=== PATIENT | male | born 1990 | race Caucasian/White ===

== ENCOUNTER 2018-01-14 20:36 | Emergency (ER) | payer SELFPAY ==
[~2018-01-14] VITALS: Ht 190.5 cm; Wt 65.8 kg
[~2018-01-14 20:36] MED LIST: BACTRIM DS 8001 TA1 PO
[2018-01-14 21:20] LABS: BASO # 0.1 10*3/uL (0.0-0.1); BASO % 0.3 % (0.0-1.0); EOS % 0.2 % (1.0-4.0); HEMATOCRIT 39.8 % (42.0-52.0); HEMOGLOBIN 13.2 g/dl (14.0-18.0); LYMPH # 2.5 10*3/uL (1.3-4.4); LYMPH % 15.6 % (27.0-41.0); MEAN CELL VOLUME 92.3 fl (80.0-94.0); MEAN CORPUSCULAR HGB 30.6 pg (27.0-31.0); MEAN CORPUSCULAR HGB CONC 33.2 g/dl (33.0-37.0); MEAN PLATELET VOLUME 10.6 fl (9.6-12.3); MONO # 1.2 10*3/uL (0.1-1.0); MONO % 7.4 % (3.0-9.0); NEUT # 12.4 10*3/uL (2.3-7.9); NEUT % 76.1 % (47.0-73.0); PLATELET COUNT AUTOMATED 265 10*3/uL (130-400); RED BLOOD COUNT 4.31 10*6/uL (4.50-5.90); RED CELL DISTRI WIDTH 13.5 % (0-14.5); WHITE BLOOD COUNT 16.3 10*3/uL (4.8-10.8)
[2018-01-14 21:36] LABS: ALBUMIN 3.1 gm/dl (3.1-4.5); ALKALINE PHOSPHATASE 96 U/L (45-117); BUN 17 mg/dl (7-24); CHLORIDE 99 mmol/L (98-107); CREATININE 0.85 mg/dL (0.70-1.30); POTASSIUM 3.9 mmol/L (3.5-5.1); SGOT/AST 25 IU/L (3-35); SGPT/ALT 44 U/L (12-78); SODIUM 133 mmol/L (136-145); TOTAL PROTEIN 8.4 gm/dL (6.4-8.2)
== END 2018-01-15 02:15 | disposition short-term general hospital (02) ==
LOC: ED 20:36
PROVIDERS: Student in an Organized Health Care Education/Training Program
DX: S40.852A Superficial foreign body of left upper arm, initial encounter (principal); M60.822 Other myositis, left upper arm; L02.414 Cutaneous abscess of left upper limb; F17.200 Nicotine dependence, unspecified, uncomplicated; Z91.030 Bee allergy status; X58.XXXA Exposure to other specified factors, initial encounter; Y93.89 Activity, other specified; Y92.89 Other specified places as the place of occurrence of the external cause; Y99.8 Other external cause status

== ENCOUNTER 2020-08-23 21:07 | Emergency (ER) | payer OTHER ==
[~2020-08-23] VITALS: Ht 187.9 cm; Wt 57.2 kg
== END 2020-08-23 22:00 | disposition home or self-care (01) ==
LOC: ED 21:07
DX: F11.23 Opioid dependence with withdrawal (principal)

== ENCOUNTER 2020-08-25 15:22 | Inpatient (IN) | payer OTHER ==
[~2020-08-25] VITALS: Ht 187.9 cm; Wt 70.0 kg
[2020-08-25 15:40] VITALS: BP 135/98
[2020-08-25 16:22] LABS: BILIRUBIN Negative (Negative); BLOOD Negative (Negative); CLARITY Cloudy (Clear); COLOR Yellow (Yellow); GLUCOSE Negative (Negative); KETONE Negative (Negative); LEUKO ESTERASE Negative (Negative); NITRITE Negative (Negative); PH 7.5 (4.5-8.0); UROBILINOGEN 0.2 E.U./dl (0.0-1.0)
[2020-08-25 16:28] LABS: URINE AMPHETAMINES < 1000 (1000ng/ml); URINE BARBITURATES < 200 (200ng/ml); URINE BENZODIAZEPINES < 200 (200ng/ml); URINE CANNABINOIDS (THC) > 50 (50ng/ml); URINE COCAINE < 300 (300ng/ml); URINE METHADONE < 300 (300ng/ml); URINE OPIATES < 300 (300ng/ml)
[2020-08-25 16:31] LABS: URINE PHENCYCLIDINE < 25 (25ng/ml)
[2020-08-25 16:36] LABS: WBC 0-2 wbc/hpf (0-5)
--- NOTE | 2020-08-25 17:02 | NUR ---
PT REMAUNS WITHOUT DISSTRESS, CALL LIGHT IN REACH, AND SIDE RAILS UP.
[2020-08-25 17:10] LABS: BASO # 0.1 10*3/uL (0.0-0.1); BASO % 1.1 % (0.0-1.0); EOS # 0.1 10*3/uL (0.0-0.4); EOS % 2.5 % (1.0-4.0); HEMATOCRIT 49.8 % (42.0-52.0); LYMPH % 37.1 % (27.0-41.0); MEAN CORPUSCULAR HGB 30.4 pg (27.0-31.0); MEAN CORPUSCULAR HGB CONC 31.7 g/dl (33.0-37.0); MEAN PLATELET VOLUME 10.7 fl (9.6-12.3); MONO # 0.3 10*3/uL (0.1-1.0); MONO % 6.3 % (3.0-9.0); NEUT # 2.8 10*3/uL (2.3-7.9); NEUT % 52.6 % (47.0-73.0); PLATELET COUNT AUTOMATED 211 10*3/uL (130-400); RED BLOOD COUNT 5.19 10*6/uL (4.50-5.90); RED CELL DISTRI WIDTH 13.9 % (0-14.5); WHITE BLOOD COUNT 5.3 10*3/uL (4.8-10.8)
[2020-08-25 17:30] LABS: ALBUMIN 3.9 gm/dl (3.1-4.5); ALKALINE PHOSPHATASE 85 U/L (45-117); BUN 14 mg/dl (7-24); CHLORIDE 109 mmol/L (98-107); POTASSIUM 4.3 mmol/L (3.5-5.1); SGOT/AST 14 IU/L (3-35); SGPT/ALT 16 U/L (12-78); SODIUM 138 mmol/L (136-145); TOTAL PROTEIN 8.5 gm/dL (6.4-8.2)
[2020-08-25 17:32] LABS: ETHYL ALCOHOL < 3.0 mg/dl (<3); TROPONIN I < 0.015 ng/ml (<0.045)
--- NOTE | 2020-08-25 18:29 | NUR ---
PT PROVIDED A DINNER TRAY AND NO ADDITIONAL COMPLAINTS VOICED,CALL LIGHT WITHIN REACH.
[2020-08-25 18:55] VITALS: BP 137/89
--- NOTE | 2020-08-25 19:00 | NUR ---
PT WAS ABLE TO EAT ENTIRE DINNER, PT RESTING IN BED. NO DISTRESS NOTED.
[2020-08-25 20:28] VITALS: BP 158/80
--- NOTE | 2020-08-25 20:28 | NUR ---
Time: 2027 A 30 year old MALE admitted to under services of SOLOMON BURTON DO. Pt. arrived via bed from ER. Chief complaint: OPIATE WITHDRAWAL. VADIM BARRERA
--- NOTE | 2020-08-25 20:51 | NUR ---
PT MEDICATED W/PRN'S AVAILABLE FOR MULTIPLE C/O WITHDRAWAL S/S. NICOTENE PATCH PLACED ON RT SHOULDER. TOWELS AND WASHCLOTHS GIVEN TO PT TO SHOWER. SNACKS GIVEN TO PT ALSO.
--- NOTE | 2020-08-25 21:50 | NUR ---
PT AMBULATING IN HALLWAY. PT STATES PRN MEDS EFFECTIVE. PT ASKING FOR SNACKS/DRINKS. FOOD/FLUIDS GIVEN TO PT PER REQUEST.
[2020-08-26] VITALS: BP 121/71
[2020-08-26 08:00] VITALS: BP 124/80
--- NOTE | 2020-08-26 08:33 | NUR ---
PATIENT MEETS [facility]. [facility] STAFF WILL FOLLOW UP WITH PATIENT WITH REFFERAL OPTION FOR A [facility] CLINIC FOR HIS AFTERCARE PLAN. BEVERLY KIM B.A. INTAKE COORDIANTOR
--- NOTE | 2020-08-26 09:18 | NUR ---
PT REQUESTED AND WAS MEDICATED WITH ROBAXIN FOR C/O MUSCLE ACHES.
--- NOTE | 2020-08-26 09:19 | NUR ---
PT REQUESTED AND WAS MEDICATED WITH MOTRIN FOR C/O GENERALIZED PAIN AND VISTRIL FOR C/O ANXIETY. CALL LIGHT IN REACH. WILL MONITOR
--- NOTE | 2020-08-26 10:10 | NUR ---
PT STATES PRN MEDICATIONS EFFECTIVE. WILL MONITOR
--- NOTE | 2020-08-26 10:53 | NUR ---
PT REQUESTED AND WAS MEDICATED WITH A NICOTINE INHALER. NICOTINE PATCH REMOVED.
[2020-08-26 12:00] VITALS: BP 124/74
--- NOTE | 2020-08-26 15:16 | NUR ---
[facility] STAFF IN TO SEE PATIENT. PATIENT WANTS TO FOLLOW UP WITH [facility] FOR HIS AFTERCARE PLAN. PATIENT RECEIVED CALL IN ROOM AND BECAME UPSET, ASKED [facility] STAFF TO LEAVE ROOM. BEVERLY KIM B.A. INVESTMENT SPECIALIST
--- NOTE | 2020-08-26 15:39 | NUR ---
PT REQUESTED AND WAS MEDICATED WITH NICOTINE GUM. NICOTINE INHALER LOCKED IN [facility].
[2020-08-26 16:00] VITALS: BP 127/87
--- NOTE | 2020-08-26 18:34 | NUR ---
PT LEFT AMA. DR HATCH, NURSING SUPERVISIOR AND MESSAGE LEFT WITH [facility].
== END 2020-08-26 18:34 | disposition left against medical advice (07) | DRG 894 ==
LOC: ED 15:22 → EDHOLD 16:13 → 4E 16:13
PROVIDERS: Nurse Practitioner Family; ADMIT Student in an Organized Health Care Education/Training Program; ATTEND Student in an Organized Health Care Education/Training Program
DX: F11.23 Opioid dependence with withdrawal (principal); F13.10 Sedative, hypnotic or anxiolytic abuse, uncomplicated; F12.90 Cannabis use, unspecified, uncomplicated; F17.210 Nicotine dependence, cigarettes, uncomplicated; F16.10 Hallucinogen abuse, uncomplicated; E87.8 Other disorders of electrolyte and fluid balance, not elsewhere classified; Z53.29 Procedure and treatment not carried out because of patient's decision for other reasons; Z79.899 Other long term (current) drug therapy

== ENCOUNTER 2021-04-21 15:49 | Inpatient (IN) | payer OTHER ==
[~2021-04-21] VITALS: Ht 190.5 cm; Wt 68.0 kg
[2021-04-21 15:55] VITALS: BP 118/77
[2021-04-21] MEDS ORDERED: PROZAC20 MG PO (16:15)
[2021-04-21] MEDS ORDERED: SUBOXONE 8 MG-1 EACH SL (16:17)
[2021-04-21 17:00] VITALS: BP 120/76
[2021-04-21 18:30] VITALS: BP 120/76
[2021-04-22] VITALS: BP 127/91
[2021-04-22 08:00] VITALS: BP 120/76
[2021-04-22 08:02] LABS: BASO % 0.6 % (0.0-1.0); EOS # 0.2 10*3/uL (0.0-0.4); EOS % 2.8 % (1.0-4.0); HEMATOCRIT 36.3 % (42.0-52.0); LYMPH # 2.1 10*3/uL (1.3-4.4); LYMPH % 30.4 % (27.0-41.0); MEAN CELL VOLUME 91.4 fl (80.0-94.0); MEAN CORPUSCULAR HGB 29.5 pg (27.0-31.0); MEAN CORPUSCULAR HGB CONC 32.2 g/dl (33.0-37.0); MEAN PLATELET VOLUME 10.3 fl (9.6-12.3); MONO # 0.4 10*3/uL (0.1-1.0); MONO % 5.6 % (3.0-9.0); NEUT # 4.1 10*3/uL (2.3-7.9); PLATELET COUNT AUTOMATED 290 10*3/uL (130-400); RED BLOOD COUNT 3.97 10*6/uL (4.50-5.90); RED CELL DISTRI WIDTH 14.4 % (0-14.5); WHITE BLOOD COUNT 6.8 10*3/uL (4.8-10.8)
[2021-04-22 09:14] LABS: ALKALINE PHOSPHATASE 72 U/L (45-117); BUN 11 mg/dl (7-24); CHLORIDE 107 mmol/L (98-107); CREATININE 0.66 mg/dL (0.70-1.30); POTASSIUM 3.7 mmol/L (3.5-5.1); SGOT/AST 19 IU/L (3-35); SGPT/ALT 30 U/L (12-78); SODIUM 137 mmol/L (136-145); TOTAL PROTEIN 7.2 gm/dL (6.4-8.2)
[2021-04-22 09:20] LABS: ETHYL ALCOHOL < 3.0 mg/dl (<3)
[2021-04-22 16:00] VITALS: BP 131/82
[2021-04-22 17:20] LABS: URINE AMPHETAMINES < 1000 (1000ng/ml); URINE BARBITURATES < 200 (200ng/ml); URINE BENZODIAZEPINES < 200 (200ng/ml); URINE CANNABINOIDS (THC) < 50 (50ng/ml); URINE COCAINE < 300 (300ng/ml); URINE METHADONE < 300 (300ng/ml); URINE OPIATES < 300 (300ng/ml)
[2021-04-22 17:27] LABS: URINE PHENCYCLIDINE < 25 (25ng/ml)
[2021-04-22 20:00] VITALS: BP 139/99
[2021-04-23 08:00] VITALS: BP 102/72; BP 142/98
[2021-04-23 20:00] VITALS: BP 143/90
[2021-04-24 08:00] VITALS: BP 129/90
[2021-04-24 12:00] VITALS: BP 127/82
[2021-04-24 16:00] VITALS: BP 138/84
[2021-04-24 20:00] VITALS: BP 149/84
[2021-04-25] VITALS: BP 132/88
[2021-04-25 08:15] VITALS: BP 135/69
[2021-04-25] MEDS ORDERED: DOXYCYCLINE MO100 M1 PO (08:23)
== END 2021-04-25 08:50 | disposition home or self-care (01) | DRG 897 ==
LOC: ED 15:49 → 4E 16:15 → EDHOLD 16:15 → 4E 20:03
PROVIDERS: Physician Assistant; ADMIT Internal Medicine; ATTEND Internal Medicine
DX: F11.23 Opioid dependence with withdrawal (principal); E44.0 Moderate protein-calorie malnutrition; Z68.1 Body mass index [BMI] 19.9 or less, adult; J20.9 Acute bronchitis, unspecified; B19.20 Unspecified viral hepatitis C without hepatic coma; F17.210 Nicotine dependence, cigarettes, uncomplicated; Z91.030 Bee allergy status; Z79.899 Other long term (current) drug therapy

== ENCOUNTER 2021-07-15 07:42 | Emergency (ER) | payer OTHER ==
[~2021-07-15 07:42] MED LIST changes: +DOXYCYCLINE MO100 M1 PO; +PROZAC20 MG PO; +SUBOXONE 8 MG-1 EACH SL
[2021-07-15] MEDS ORDERED: NARCAN4 MG NAS (11:30)
== END 2021-07-15 12:02 | disposition home or self-care (01) ==
LOC: ED 07:42
DX: T40.1X1A Poisoning by heroin, accidental (unintentional), initial encounter (principal); F41.9 Anxiety disorder, unspecified; F17.210 Nicotine dependence, cigarettes, uncomplicated; Z91.030 Bee allergy status; Z79.2 Long term (current) use of antibiotics; Z79.899 Other long term (current) drug therapy; Y92.89 Other specified places as the place of occurrence of the external cause

== ENCOUNTER 2021-08-23 01:29 | Emergency (ER) | payer OTHER ==
[~2021-08-23] VITALS: Ht 190.5 cm; Wt 68.0 kg
[~2021-08-23 01:29] MED LIST changes: +NARCAN4 MG NAS
== END 2021-08-23 02:44 | disposition left against medical advice (07) ==
LOC: ED 01:29
DX: T40.601A Poisoning by unspecified narcotics, accidental (unintentional), initial encounter (principal); R40.20 Unspecified coma; F17.210 Nicotine dependence, cigarettes, uncomplicated; Z91.030 Bee allergy status; Z79.2 Long term (current) use of antibiotics; Z79.899 Other long term (current) drug therapy; Z53.29 Procedure and treatment not carried out because of patient's decision for other reasons; Y92.89 Other specified places as the place of occurrence of the external cause

== ENCOUNTER 2021-08-27 04:08 | Emergency (ER) | payer OTHER ==
[~2021-08-27] VITALS: Ht 193 cm; Wt 72.6 kg
[2021-08-27 04:44] LABS: BASO # 0.1 10*3/uL (0.0-0.1); BASO % 0.4 % (0.0-1.0); EOS % 0.2 % (1.0-4.0); HEMATOCRIT 45.5 % (42.0-52.0); LYMPH % 6.9 % (27.0-41.0); MEAN CELL VOLUME 99.1 fl (80.0-94.0); MEAN CORPUSCULAR HGB 31.2 pg (27.0-31.0); MEAN CORPUSCULAR HGB CONC 31.4 g/dl (33.0-37.0); MEAN PLATELET VOLUME 10.8 fl (9.6-12.3); MONO # 0.3 10*3/uL (0.1-1.0); MONO % 2.1 % (3.0-9.0); NEUT # 12.6 10*3/uL (2.3-7.9); NEUT % 89.4 % (47.0-73.0); PLATELET COUNT AUTOMATED 212 10*3/uL (130-400); RED BLOOD COUNT 4.59 10*6/uL (4.50-5.90); RED CELL DISTRI WIDTH 14.2 % (0-14.5); WHITE BLOOD COUNT 14.1 10*3/uL (4.8-10.8)
[2021-08-27 04:57] LABS: CREATININE 1.73 mg/dL (0.70-1.30)
[2021-08-27 05:28] LABS: URINE AMPHETAMINES > 1000 (1000ng/ml); URINE BARBITURATES < 200 (200ng/ml); URINE BENZODIAZEPINES < 200 (200ng/ml); URINE CANNABINOIDS (THC) < 50 (50ng/ml); URINE COCAINE < 300 (300ng/ml); URINE METHADONE < 300 (300ng/ml); URINE OPIATES < 300 (300ng/ml)
[2021-08-27 05:31] LABS: URINE PHENCYCLIDINE < 25 (25ng/ml)
== END 2021-08-27 06:59 | disposition home or self-care (01) ==
LOC: ED 04:08
PROVIDERS: Internal Medicine
DX: T40.411A Poisoning by fentanyl or fentanyl analogs, accidental (unintentional), initial encounter (principal); D72.829 Elevated white blood cell count, unspecified; N17.9 Acute kidney failure, unspecified; F17.210 Nicotine dependence, cigarettes, uncomplicated; Z91.030 Bee allergy status; Y92.89 Other specified places as the place of occurrence of the external cause

== ENCOUNTER 2021-12-18 11:41 | Emergency (ER) | payer OTHER ==
[~2021-12-18] VITALS: Ht 187.9 cm; Wt 81.6 kg
== END 2021-12-18 19:10 | disposition home or self-care (01) ==
LOC: ED 11:41
DX: T40.1X1A Poisoning by heroin, accidental (unintentional), initial encounter (principal); F17.210 Nicotine dependence, cigarettes, uncomplicated; Z91.030 Bee allergy status; Y92.89 Other specified places as the place of occurrence of the external cause

== ENCOUNTER 2022-01-10 02:23 | Emergency (ER) | payer OTHER ==
[~2022-01-10] VITALS: Ht 190.5 cm
== END 2022-01-10 03:35 | disposition home or self-care (01) ==
LOC: ED 02:23
DX: S61.211A Laceration without foreign body of left index finger without damage to nail, initial encounter (principal); Z91.030 Bee allergy status; F17.210 Nicotine dependence, cigarettes, uncomplicated; W26.0XXA Contact with knife, initial encounter; Y93.89 Activity, other specified; Y92.89 Other specified places as the place of occurrence of the external cause; Y99.8 Other external cause status